=== PATIENT | male | born 1995 | race Hispanic/Latino ===

== ENCOUNTER 2016-10-12 14:56 | Emergency (ER) | payer OTHER ==
[~2016-10-12] VITALS: Ht 170.2 cm; Wt 70.8 kg
[2016-10-12 15:50] VITALS: BP 142/61
--- NOTE | 2016-10-12 15:56 | REP ---
RIGHT 1ST DIGIT: Four views of the right 1st digit are performed and demonstrate no fracture, dislocation or intrinsic bone disease. IMPRESSION: No fracture dislocation. Signed by Gerardo Hernandez MD 10/12/2016 04:11 P
== END 2016-10-12 15:50 | disposition home or self-care (01) ==
LOC: M ED 15:49
DX: S60.111A Contusion of right thumb with damage to nail, initial encounter (principal); W23.0XXA Caught, crushed, jammed, or pinched between moving objects, initial encounter; Y92.149 Unspecified place in prison as the place of occurrence of the external cause; Y93.B3 Activity, free weights; Y99.9 Unspecified external cause status